=== PATIENT | male | born 1990 | race Hispanic/Latino ===

== ENCOUNTER 2020-12-16 11:28 | Emergency (ER) | payer MEDICAID ==
--- OUTSIDE RECORDS SUMMARY | 2020-12-16 11:32 | XMS REPORT | Continuity of Care Document ---
:1990 Author Organization [facility] t Address [address] [place] [address] Dr. Betancur [address] [place] [id number] Care Team Providers Name Role Phone Unavailable Unavailable Unavailable Problems This patient has no known problems. Allergies, Adverse Reactions, Alerts This patient has no known allergies or adverse reactions. Medications This patient has no known medications. Procedures This patient has no known procedures. Results This patient has no known results.
[2020-12-16 13:18] LABS: Absolute Lymphocytes (CBC) 1.1 K/uL (0.7-4.9); Basophils % 0.6 % (0-1.3); Lymphocytes % 14.6 % (15.3-44.8); MPV 11.4 fL (7.6-11.3); RBC Red Blood Cell Count 4.73 M/uL (4.33-5.43)
[2020-12-16] MEDS ORDERED: NA CHLORIDE 0.9% 1,000 ML ONE (13:26)
[2020-12-16] MEDS ORDERED: ONDANSETRON 4 MG/2 ML VIAL ONE (13:26)
[2020-12-16] MEDS ORDERED: PANTOPRAZOLE 40 MG INJ ONE (13:26)
[2020-12-16 13:42] LABS: ALT/SGPT 29 U/L (12-78); AST/SGOT 15 U/L (15-37); Alkaline Phosphatase 66 U/L (45-117); BUN Blood Urea Nitrogen 9 mg/dL (7-18); Bicarbonate 30 mmol/L (21-32); Bilirubin Direct 0.1 mg/dL (0-0.2); Bilirubin Total 0.5 mg/dL (0.2-1.0); Glucose Level 93 mg/dL (74-106); Lipase 112 U/L (73-393); Potassium 4.2 mmol/L (3.5-5.1); Protein, Total 6.9 g/dL (6.4-8.2); Sodium Level 143 mmol/L (136-145)
--- NOTE | 2020-12-16 14:23 | RAD REPORT ---
EXAM DESCRIPTION: CT - Abdomen Pelvis W Contrast - 12/16/2020 1:56 pm CLINICAL HISTORY: ABD PAIN COMPARISON: No comparisons TECHNIQUE: Biphasic, helical CT imaging of the abdomen and pelvis was performed following 100 ml non -ionic IV contrast. No oral contrast administered. All CT scans are performed using dose optimization technique as appropriate and may include automated exposure control or mA/KV adjustment according to patient size. FINDINGS: No suspicious findings in the lung bases. The liver, spleen, and pancreas show no suspicious findings. Gallbladder and biliary tree are also wi thout suspicious finding. Symmetric renal function is seen with no hydronephrosis or suspicious renal mass. No pyelonephritis o r acute parenchymal process. No bladder abnormalities. No adrenal abnormalities. Small right renal cy st is present. No gastric dilatation or gastric wall thickening. No dilated large or small bowel loops. Sigmoid colo n is redundant. Appendix is probably but not definitively identified as a normal structure. Current i maging findings are not sufficient for appendicitis diagnosis. The paucity of intra- abdominal fat cr eates carotid abdominal structures. No free air or pneumatosis. No focal inflammatory stranding seen. There is a trace amount of free fluid in the dependent portion of the pelvis most likely reactive. No hernia, mass or bulky lymphadenopathy. No suspicious bony findings. IMPRESSION: Contrast enhanced CT abdomen and pelvis showing no acute or significant finding. As detailed above, findings are not sufficient for appendicitis or other emergent finding.
--- NOTE | 2020-12-16 14:28 | EDPHYS ---
Physician Documentation [facility] Name: Mohamud Rod Age: 30 yrs Sex: Male : 1990 Arrival Date: 12/16/2020 Time: 11:33 Bed 30 Private MD: ED Physician Zion Sepulveda HPI: 12/16 12:54 This 30 yrs old Male presents to ER via Ambulatory with complaints of Vomiting.kb 12:54 The patient presents to the emergency department with nausea, vomiting, diarrhea, kb abdominal pain. Onset: The symptoms/episode began/occurred this morning. Possible causes: unknown. The symptoms are aggravated by nothing. The symptoms are alleviated by nothing. Associated signs and symptoms: Pertinent positives: abdominal pain, diarrhea, nausea, vomiting, Pertinent negatives: fever. Severity of symptoms: At their worst the symptoms were moderate in the emergency department the symptoms have improved. The patient has not experienced similar symptoms in the past. The patient has not recently seen a physician. Pt reports diffuse abd pain, n/v/d that started this morning. STates he has had similar symptoms in the past due to GERD one time and food poisoning another time. Historical: - Allergies: 11:40 No Known Allergies; tw2 - Home Meds: 11:40 None [Active]; tw2 - PMHx: 11:40 Acid reflux; tw2 - PSHx: 11:40 None; tw2 - Immunization history:: Adult Immunizations. - Social history:: Smoking status: . ROS: 12:52 Constitutional: Negative for fever, chills, and weight loss. kb 12:52 Abdomen/GI: Positive for abdominal pain, nausea, vomiting, and diarrhea. 12:52 All other systems are negative. Exam: 12:52 Constitutional: This is a well developed, well nourished patient who is awake, alert, kb and in no acute distress. Head/Face: Normocephalic, atraumatic. ENT: Moist Mucous membranes Cardiovascular: Regular rate and rhythm with a normal S1 and S2. No gallops, murmurs, or rubs. No pulse deficits. Respiratory: Respirations even and unlabored. No increased work of breathing, no retractions or nasal flaring. Skin: Warm, dry with normal turgor. Normal color. MS/ Extremity: Pulses equal, no cyanosis. Neurovascular intact. Full, normal range of motion. Neuro: Awake and alert, GCS 15, oriented to person, place, time, and situation. Moves all extremities. Normal gait. Psych: Awake, alert, with orientation to person, place and time. Behavior, mood, and affect are within normal limits. 12:52 Abdomen/GI: Inspection: abdomen appears normal, Bowel sounds: normal, in all quadrants, Palpation: soft, in all quadrants, mild abdominal tenderness, in all quadrants. Vital Signs: 11:37 BP 127 / 84; Pulse 76; Resp 18; Temp 98.5(TE); Pulse Ox 100% on R/A; Weight 58.97 kg tw2 (R); Height 5 ft. 6 in. (167.64 cm); Pain 4/10; 12:17 BP 116 / 69; Pulse 67; Resp 16; Pulse Ox 100% on R/A; zb 13:30 BP 116 / 78; Pulse 64; Resp 16; Pulse Ox 99% on R/A; zb 14:47 BP 120 / 81; Pulse 84; Resp 16; Pulse Ox 100% on R/A; zb 11:37 Body Mass Index 20.98 (58.97 kg, 167.64 cm) tw2 MDM: 12:06 Patient medically screened. kb 12:52 Data reviewed: vital signs, nurses notes. Data interpreted: Pulse oximetry: on room air kb is 100 %. Interpretation: normal. 14:27 Counseling: I had a detailed discussion with the patient and/or guardian regarding: the kb historical points, exam findings, and any diagnostic results supporting the discharge/admit diagnosis, lab results, radiology results, the need for outpatient follow up, a family practitioner, a fish and game club manager, to return to the emergency department if symptoms worsen or persist or if there are any questions or concerns that arise at home. 12/16 12:16 Order name: Basic Metabolic Panel; Complete Time: 13:44 kb 12/16 12:16 Order name: CBC with Diff; Complete Time: 13:21 kb 12/16 12:16 Order name: Hepatic Function; Complete Time: 13:44 kb 12/16 12:16 Order name: Lipase; Complete Time: 13:44 kb 12/16 13:44 Order name: CT Abd/Pelvis - IV Contrast Only; Complete Time: 14:26 kb 12/16 12:16 Order name: IV Saline Lock; Complete Time: 12:42 kb 12/16 12:16 Order name: Labs collected and sent; Complete Time: 12:42 kb Administered Medications: 13:00 Drug: NS 0.9% 1000 ml {Note: Patient has a PICC .} Route: IV; Rate: 1000 ml; Site: zb right upper arm; 13:00 Drug: Zofran (Ondansetron) 4 mg {Note: Patient has a PICC .} Route: IVP; Site: right zb antecubital; 13:00 Drug: ProTONIX (pantoprazole) 40 mg {Note: patient has a PICC line .} Route: IVP; Site: zb right upper arm; Disposition: 17:13 Co-signature as Attending Physician, Zion Sepulveda MD. rn Disposition: 12/16/20 14:27 Discharged to Home. Impression: Nausea and vomiting, Diarrhea, unspecified. - Condition is Stable. - Discharge Instructions: Food Choices to Help Relieve Diarrhea, Adult, Viral Gastroenteritis, Adult, [id number], Diarrhea, Adult, [id number]. - Prescriptions for Bentyl 20 mg Oral Tablet - take 1 tablet by ORAL route every 6 hours As needed; 20 tablet. Zofran 4 mg Oral Tablet - take 1 tablet by ORAL route every 6 hours As needed; 20 tablet. - Work release form, Medication Reconciliation Form, Thank You Letter, Antibiotic Education, Prescription Opioid Use form. - Follow up: Emergency Department; When: As needed; Reason: Worsening of condition. Follow up: Private Physician; When: 2 - 3 days; Reason: Recheck today's complaints, Continuance of care, Re-evaluation by your physician. Signatures: Dispatcher [employer] [facility] Linda Hayes, DESIGN CONSULTANT-C DESIGN CONSULTANT-Ckb Zion Sepulveda MD MD rn Wise, Tara, RN RN tw2 Amanda Tellez RN RN zb Corrections: (The following items were deleted from the chart) 14:47 14:27 12/16/2020 14:27 Discharged to Home. Impression: Nausea and vomiting; Diarrhea, zb unspecified. Condition is Stable. Forms are Medication Reconciliation Form, Thank You Letter, Antibiotic Education, Prescription Opioid Use. Follow up: Emergency Department; When: As needed; Reason: Worsening of condition. Follow up: Private Physician; When: 2 - 3 days; Reason: Recheck today's complaints, Continuance of care, Re-evaluation by your physician. kb
--- NOTE | 2020-12-16 14:28 | ER ---
Nurse's Notes [facility] Name: Mohamud Rod Age: 30 yrs Sex: Male : 1990 Arrival Date: 12/16/2020 Time: 11:33 Bed 30 Private MD: Diagnosis: Nausea and vomiting;Diarrhea, unspecified Presentation: 12/16 11:37 Chief complaint: Patient states: i woke up having pain on the LEFT side of my stomach. tw2 i did some vomiting and at first it was really nothing. the 2nd time i threw up the blackish stuff came out with some fries i had eaten the day before. i still feel nauseous. and also i am having some diarrhea. Coronavirus screen: nausea, vomiting. Client presents with at least one sign or symptom that may indicate coronavirus-19. Standard/surgical mask placed on the client. Provider contacted for isolation considerations. Ebola Screen: Patient denies travel to an Ebola-affected area in the 21 days before illness onset. Initial Sepsis Screen: Does the patient meet any 2 criteria? No. Patient's initial sepsis screen is negative. Does the patient have a suspected source of infection? No. Patient's initial sepsis screen is negative. Risk Assessment: Do you want to hurt yourself or someone else? Patient reports no desire to harm self or others. Onset of symptoms was December 16, 2020. 11:37 Method Of Arrival: Ambulatory tw2 11:37 Acuity: NITO 3 tw2 Triage Assessment: 11:40 General: Appears in no apparent distress. slender, Behavior is calm, cooperative, tw2 appropriate for age. Pain: Complains of pain in left upper quadrant and left lower quadrant. GI: Reports lower abdominal pain, upper abdominal pain, diarrhea, nausea, vomiting. Historical: - Allergies: 11:40 No Known Allergies; tw2 - Home Meds: 11:40 None [Active]; tw2 - PMHx: 11:40 Acid reflux; tw2 - PSHx: 11:40 None; tw2 - Immunization history:: Adult Immunizations. - Social history:: Smoking status: . Screenin:13 Abuse screen: Denies threats or abuse. Denies injuries from another. Nutritional zb screening: No deficits noted. Tuberculosis screening: No symptoms or risk factors identified. Fall Risk None identified. Assessment: 12:11 General: Appears uncomfortable, Behavior is calm, cooperative, appropriate for age, zb Denies fever, fatigue, chills. Pain: Complains of pain in left lower quadrant and left upper quadrant Pain does not radiate. Pain currently is 4 out of 10 on a pain scale. Neuro: Level of Consciousness is awake, alert, obeys commands, Oriented to person, place, time, situation. Cardiovascular: Patient's skin is warm and dry. Respiratory: Airway is patent Respiratory effort is even, unlabored, Respiratory pattern is regular, symmetrical. GI: Abdomen is flat, non-distended. GI: Bowel sounds present X 4 quads. Abdomen is tender to palpation in right upper quadrant, left upper quadrant, right lower quadrant and left lower quadrant Reports lower abdominal pain, upper abdominal pain, diarrhea, nausea, vomiting. : No deficits noted. Derm: Skin is intact, is healthy with good turgor, Skin is dry, Skin is normal. Musculoskeletal: Circulation, motion, and sensation intact. Range of motion: intact in all extremities. 13:20 Reassessment: Patient appears in no apparent distress at this time. Patient and/or zb family updated on plan of care and expected duration. Pain level reassessed. Patient is alert, oriented x 3, equal unlabored respirations, skin warm/dry/pink. patient able to ambulate to restroom. IV fluid infusing. 13:50 Reassessment: patient transferred to CT. zb 14:47 Reassessment: patient d/c. ambulatory, gait even and steady. family at bedside. zb Vital Signs: 11:37 BP 127 / 84; Pulse 76; Resp 18; Temp 98.5(TE); Pulse Ox 100% on R/A; Weight 58.97 kg tw2 (R); Height 5 ft. 6 in. (167.64 cm); Pain 4/10; 12:17 BP 116 / 69; Pulse 67; Resp 16; Pulse Ox 100% on R/A; zb 13:30 BP 116 / 78; Pulse 64; Resp 16; Pulse Ox 99% on R/A; zb 14:47 BP 120 / 81; Pulse 84; Resp 16; Pulse Ox 100% on R/A; zb 11:37 Body Mass Index 20.98 (58.97 kg, 167.64 cm) tw2 ED Course: 11:33 Patient arrived in ED. as 11:34 Linda Hayes FNP-C is [facility]. kb 11:34 Zion Sepulveda MD is Attending Physician. kb 11:39 Triage completed. tw2 11:40 Arm band placed on. tw2 12:07 Amanda Tellez, FIDE is Primary Nurse. zb 12:14 Patient has correct armband on for positive identification. Bed in low position. Call zb light in reach. Side rails up X 1. Pulse ox on. NIBP on. Door closed. Noise minimized. 12:42 Inserted saline lock: 20 gauge in right antecubital area, using aseptic technique. dh4 Blood collected. 13:56 CT Abd/Pelvis - IV Contrast Only In Process Unspecified. EDMS 14:46 No provider procedures requiring assistance completed. IV discontinued, intact, zb bleeding controlled, No redness/swelling at site. Pressure dressing applied. Administered Medications: 13:00 Drug: NS 0.9% 1000 ml {Note: Patient has a PICC .} Route: IV; Rate: 1000 ml; Site: zb right upper arm; 13:00 Drug: Zofran (Ondansetron) 4 mg {Note: Patient has a PICC .} Route: IVP; Site: right zb antecubital; 13:00 Drug: ProTONIX (pantoprazole) 40 mg {Note: patient has a PICC line .} Route: IVP; Site: zb right upper arm; Outcome: 14:27 Discharge ordered by . kb 14:46 Discharged to home ambulatory, with family. zb 14:46 Condition: stable 14:46 Discharge instructions given to patient, family, Instructed on discharge instructions, follow up and referral plans. medication usage, Demonstrated understanding of instructions, follow-up care, medications, Prescriptions given X 2. 14:47 Patient left the ED. zb Signatures: Dispatcher [employer] EDMS Linda Hayes FNP-C FNP-Shiela Berg Tara, RN RN tw2 Ck Bobby 4 Amanda Tellez, FIDE RN zb Corrections: (The following items were deleted from the chart) 11:41 11:37 Chief complaint: Patient states: i woke up having pain on the LEFT side of my tw2 stomach. i did some vomiting and at first it was really nothing. the 2nd time i threw up the blackish stuff came out with some fries i had eaten the day before. i still feel nauseous. tw2 12:14 12:11 GI: Bowel sounds present X 4 quads. Abdomen is tender to palpation in right upper zb quadrant, left upper quadrant, right lower quadrant and left lower quadrant Reports lower abdominal pain, upper abdominal pain, diarrhea, zb
[2020-12-16 15:08] VITALS: TEMP 98.5
[2020-12-16 15:12] VITALS: BP 120/81; O2SAT 100
== END 2020-12-16 14:47 | disposition home or self-care (01) ==
LOC: ER 11:28
DX: R19.7 Diarrhea, unspecified (principal)
CPT/HCPCS: 85025; 80048; 36415; 80076; 83690; 74177; Q9967; C9113; J7030; J2405; 99284